=== PATIENT | male | born 1985 | race Caucasian/White ===

== ENCOUNTER → 2020-05-17 | Outpatient (CLI) | payer OTHER | END | disposition home or self-care (01) | LOC: LABWHC1 11:47 | PROVIDERS: ATTEND Family Medicine | DX: Z20.828 Contact with and (suspected) exposure to other viral communicable diseases (principal) | CPT/HCPCS: U0003; C9803 ==

== ENCOUNTER 2020-05-22 20:34 | Emergency (ER) | payer OTHER ==
--- NOTE | 2020-05-22 21:58 | ED ---
Abdominal Pain HPI - General Chief Complaint: Abdominal Pain Stated Complaint: +Kristina BRAY Abd Pain Time Seen by Provider: 05/22/20 21:31 Source: patient Mode of arrival: wheelchair Limitations: no limitations - History of Present Illness Initial Comments: Patient is a 35-year-old male presenting to the emergency Department with complaints of left-sided abdominal pain that started 2 hours ago. Patient states he tested positive for: Daniele about 5 days ago. His symptoms have been mild. Patient states today while he was using the restroom, about 2 hours prior to arrival he started having left-sided abdominal pain, slightly towards the left side of the back. He states he was unable to find a comfortable position, he felt nauseous and was unable to stand up straight. Patient states this lasted for approximately 2 hours before he came into the ER. Patient states as he's been waiting in the ER, his pain has subsided, he currently rates it a 1/10 . He no longer feels nauseous, no vomiting. He denies history of kidney stones, no abdominal surgeries. He denies any falls or trauma to the area. He states he felt mildly short of breath earlier today where he was doing some chores. He denies any chest pain. He denies any fever or chills. He denies any hematuria, dysuria. Patient has no further complaints at this time. Upon arrival to the ER, his vitals are stable. - Related Data Previous Rx's Medication Instructions Recorded Ketorolac [Toradol] 10 mg PO Q8HR #10 tab 05/23/20 Allergies Allergy/AdvReac Type Severity Reaction Status Date / Time No Known Allergies Allergy Verified 05/22/20 22:21 Review of Systems ROS Statement: Those systems with pertinent positive or pertinent negative responses have been documented in the HPI. ROS Other: All systems not noted in ROS Statement are negative. Past Medical History Past Medical History: No Reported History History of Any Multi-Drug Resistant Organisms: None Reported Past Surgical History: Orthopedic Surgery Additional Past Surgical History / Comment(s): rt foot Past Psychological History: No Psychological Hx Reported Smoking Status: Never smoker Past Alcohol Use History: None Reported Past Drug Use History: None Reported General Exam - General Exam Comments Initial Comments: GENERAL: Patient is well-developed and well-nourished. Patient is nontoxic and in no acute distress. HEAD: Atraumatic, normocephalic. EYES: Pupils equal round and reactive to light, extraocular movements intact, sclera anicteric, conjunctiva are normal. Eyelids were unremarkable. ENT: TMs normal, nares patent, oropharynx clear without exudates. Moist mucous membranes. NECK: Normal range of motion, supple without lymphadenopathy or JVD. LUNGS: Unlabored respirations. Breath sounds clear to auscultation bilaterally and equal. No wheezes rales or rhonchi. HEART: Regular rate and rhythm without murmurs, rubs or gallops. ABDOMEN: Soft, nontender, normoactive bowel sounds. No guarding, no rebound. No masses appreciated. : Deferred MUSCULOSKELETAL: Normal extremities with adequate strength and normal range of motion, no pitting or edema. No clubbing or cyanosis. NEUROLOGICAL: Patient is alert and oriented x 3. Motor and sensory are also intact. Cranial nerves II through XII grossly intact. Symmetrical smile. Normal speech, normal gait. PSYCH: Normal mood, normal affect. SKIN: Warm, Dry, normal turgor, no rashes or lesions noted. Limitations: no limitations Course Vital Signs 05/22/20 20:39 Temperature 98.7 F Pulse Rate 59 L Respiratory 24 Rate Blood Pressure 146/95 O2 Sat by Pulse 100 Oximetry Medical Decision Making - Medical Decision Making Patient is a 35-year-old male here with left-sided pain that started about 2 hours ago. On arrival to the ER, his vitals are stable, he is currently asymptomatic, no belly pain on palpation. Labs show a white count 17.3, kidney function is stable, urine has a large amount of blood, RBCs, no signs of infection. Chest x-ray is normal. CT of the abdomen shows a very small calculus within the urinary bladder, could be a recently passed stone. No other abnormality seen. Discussed these findings with the patient. This is most likely a kidney stone. Patient will be given Toradol before DC. I will also send additional Toradol to his pharmacy as symptoms persist. Patient is in agreement with plan of care. He can follow up with his PCP. Return parameters were discussed with the patient and he verbalized understanding. Case discussed with Dr. Sebastian. - Lab Data Result diagrams: 05/22/20 22:30 05/22/20 22:30 Lab Results 12/08/20 12/08/20 12/08/20 Range/Units 22:30 22:30 23:31 WBC 17.3 H (3.8-10.6) k/uL RBC 5.09 (4.30-5.90) m/uL Hgb 15.6 (13.0-17.5) gm/dL Hct 45.1 (39.0-53.0) % MCV 88.6 (80.0-100.0) fL MCH 30.7 (25.0-35.0) pg MCHC 34.7 (31.0-37.0) g/dL RDW 12.1 (11.5-15.5) % Plt Count 277 (150-450) k/uL MPV 8.3 Neutrophils % 85 % Lymphocytes % 9 % Monocytes % 4 % Eosinophils % 0 % Basophils % 1 % Neutrophils # 14.7 H (1.3-7.7) k/uL Lymphocytes # 1.5 (1.0-4.8) k/uL Monocytes # 0.7 (0-1.0) k/uL Eosinophils # 0.1 (0-0.7) k/uL Basophils # 0.1 (0-0.2) k/uL Sodium 140 (137-145) mmol/L Potassium 4.4 (3.5-5.1) mmol/L Chloride 106 (98-107) mmol/L Carbon Dioxide 26 (22-30) mmol/L Anion Gap 8 mmol/L BUN 18 (9-20) mg/dL Creatinine 1.23 (0.66-1.25) mg/dL Est GFR (CKD-EPI)AfAm 89 (>60 ml/min/1.73 sqM) Est GFR (CKD-EPI)NonAf 77 (>60 ml/min/1.73 sqM) Glucose 111 H (74-99) mg/dL Calcium 9.3 (8.4-10.2) mg/dL Total Bilirubin 0.5 (0.2-1.3) mg/dL AST 33 (17-59) U/L ALT 21 (4-49) U/L Alkaline Phosphatase 79 (38-126) U/L Total Protein 7.9 (6.3-8.2) g/dL Albumin 4.6 (3.5-5.0) g/dL Urine Color Yellow Urine Appearance Clear (Clear) Urine pH 6.0 (5.0-8.0) Ur Specific [place] 1.024 (1.001-1.035) Urine Protein 1+ H (Negative) Urine Glucose (UA) Negative (Negative) Urine Ketones Negative (Negative) Urine Blood Large H (Negative) Urine Nitrite Negative (Negative) Urine Bilirubin 1+ H (Negative) Urine Urobilinogen <2.0 (<2.0) mg/dL Ur Leukocyte Esterase Negative (Negative) Urine RBC 110 H (0-5) /hpf Urine WBC 2 (0-5) /hpf Ur Squamous Epith Cells 1 (0-4) /hpf Hyaline Casts 10 H (0-2) /lpf Urine Mucus Many H (None) /hpf Urine Yeast (Budding) Rare H (None) /hpf Disposition Clinical Impression: Left flank pain, Left ureteral calculus Disposition: HOME SELF-CARE Condition: Stable Instructions (If sedation given, give patient instructions): Kidney Stones (ED) Additional Instructions: Please return to the Emergency Department if symptoms worsen or any other concerns. Continue to drink lots of fluids. Ibuprofen alternating with Tylenol for any further discomfort. Prescriptions: Ketorolac [Toradol] 10 mg PO Q8HR #10 tab Is patient prescribed a controlled substance at d/c from ED?: No Referrals: Anastacio Robins MD [Primary Care Provider] - 1-2 days
--- NOTE | 2020-05-22 22:43 | XR ---
EXAMINATION TYPE: XR chest 2V DATE OF EXAM: 05/22/2020 COMPARISON: 11/09/2012 HISTORY: Left side pain TECHNIQUE: FINDINGS: Heart and mediastinum are normal. Lungs are clear. Diaphragm is normal. Bony thorax appears normal. IMPRESSION: Normal chest. No change.
[2020-05-22 22:45] LABS: Basophils # (A) 0.1 k/uL (0-0.2); Basophils % (A) 1 %; Eosinophils # (A) 0.1 k/uL (0-0.7); Eosinophils % (A) 0 %; HCT 45.1 % (39.0-53.0); HGB 15.6 gm/dL (13.0-17.5); Lymphocytes # (A) 1.5 k/uL (1.0-4.8); Lymphocytes % (A) 9 %; MCH 30.7 pg (25.0-35.0); MCHC 34.7 g/dL (31.0-37.0); MCV 88.6 fL (80.0-100.0); Mean Platelet Volume 8.3; Monocytes # (A) 0.7 k/uL (0-1.0); Monocytes % (A) 4 %; Neutrophils # (A) 14.7 k/uL (1.3-7.7); Neutrophils % (A) 85 %; Platelet Count 277 k/uL (150-450); RBC 5.09 m/uL (4.30-5.90); RDW 12.1 % (11.5-15.5); WBC 17.3 k/uL (3.8-10.6)
[2020-05-22 22:53] LABS: Albumin 4.6 g/dL (3.5-5.0); Calcium 9.3 mg/dL (8.4-10.2); Total Bilirubin 0.5 mg/dL (0.2-1.3); Total Protein 7.9 g/dL (6.3-8.2)
[2020-05-22 22:54] LABS: Potassium 4.4 mmol/L (3.5-5.1)
--- NOTE | 2020-05-22 23:31 | CT ---
EXAMINATION TYPE: CT abdomen pelvis wo con DATE OF EXAM: 05/22/2020 COMPARISON: None HISTORY: Left Flank Pain CT DLP: 792.70 mGycm Automated exposure control for dose reduction was used. There is small infiltrate at the left posterior lung base. There is no pleural effusion. There is no pericardial effusion. Liver spleen stomach pancreas gallbladder appear intact. Bile ducts are nondilated. There is no adrenal mass. Kidneys have normal size. There is no hydronephrosis. Ureters are not dilat ed. There is no retroperitoneal adenopathy. Bladder distends smoothly. There is no inguinal hernia. A ppendix is medial and appears normal. There is no evidence of a pelvic mass. There is no free fluid in the pelvis. There is 3 mm calculus i n the dependent midline urinary bladder. There is no mesenteric edema. There is no ascites or free air. There is no bowel obstruction. Lumbar vertebra have normal alignment. Posterior elements are intact. There is no compression fracture. Bony pelvis is intact. IMPRESSION: Very small calculus within the urinary bladder could be recently passed stone. No hydronephrosis or h ydroureter. Normal appendix.
[2020-05-23 00:01] LABS: Appearance,Urine Clear (Clear); Bilirubin,Urine 1+ (Negative); Blood,Urine Large (Negative); Budding Yeast,Urine Rare /hpf; Color,Urine Yellow; Glucose,Urine (UA) Negative (Negative); Hyaline Casts,Urine 10 /lpf (0-2); Ketones,Urine Negative (Negative); Leukocyte Esterase,Urine Negative (Negative); Mucus,Urine Many /hpf; Nitrite,Urine Negative (Negative); Protein,Urine 1+ (Negative); RBC,Urine 110 /hpf (0-5); Specific Gravity,Urine 1.024 (1.001-1.035); Squamous Epithelial Cell,Urine 1 /hpf (0-4); Urobilinogen,Urine <2.0 mg/dL (<2.0); WBC,Urine 2 /hpf (0-5)
[2020-05-23] MEDS ORDERED: KETOROLAC 15 MG/ML 1 ML VIAL IVP STA (00:12)
[2020-05-23] MEDS ORDERED: ONDANSETRON 4 MG ODT STARTER PACK 2 TAB BTL PO STA (00:14)
[2020-05-23 00:56] VITALS: BP 148/97; PULSE 76; RESP 19; TEMP 98.6
== END 2020-05-23 00:50 | disposition home or self-care (01) ==
LOC: EC 20:34
DX: N20.1 Calculus of ureter (principal); N21.0 Calculus in bladder
CPT/HCPCS: 36415; 71046; 74176; 80053; 81001; 85025; 96374; 99284